=== PATIENT | male | born 1935 | race Caucasian/White ===

== ENCOUNTER 2017-10-16 14:28 | Observation (INO) | payer MEDICARE, BC ==
[2017-10-16] VITALS (10 sets, daily range): BP systolic 115–154; BP diastolic 53–89; PULSE 70–71; TEMP 97.4–97.9
[2017-10-16] MEDS ORDERED: TENORMIN 2525 MG/TAB PO (15:19)
[2017-10-16] MEDS ORDERED: GLUCOPHAGE500 MG/TAB PO (15:19)
[2017-10-16] MEDS ORDERED: ASPIRIN 32325 MG/TAB PO (15:20)
[2017-10-16] MEDS ORDERED: AMARYL4 MG PO (15:20)
[2017-10-16] MEDS ORDERED: ZYLOPRIM 100MG100 MG PO (15:21)
[2017-10-16] MEDS ORDERED: COUMADIN4 MG PO (15:22)
[2017-10-16 15:23] LABS: HEMATOCRIT 38.1 % (42.0-52.0); HEMOGLOBIN 13.2 g/dl (13.5-18.0); MEAN CELL VOLUME 91 fl (80.0-100.0); MEAN CORPUSCULAR HEMOGLOBIN 31 pg (27.0-31.0); MEAN CORPUSCULAR HGB CONC 35 g/dl (33.0-37.0); MEAN PLATELET VOLUME 9.3 fl (7.4-10.4); PLATELET COUNT 175 K/mm3 (130-400); REDCELL DISTRIBUTION WIDTH-CV 12.9 % (11.5-14.5)
[2017-10-16] MEDS ORDERED: COZAAR 50MG50 MG/TAB PO (15:23)
[2017-10-16 15:35] LABS: ALBUMIN 3.9 gm/dL (3.5-5.0); BILIRUBIN,TOTAL 0.6 mg/dL (0.0-1.0); CALCIUM 9.1 mg/dL (8.4-10.2); CREATININE, serum 0.93 mg/dL (0.66-1.25); POTASSIUM 4.1 mmol/L (3.4-5.0); TOTAL PROTEIN 7.5 gm/dL (6.4-8.2)
[2017-10-17 03:57] VITALS: BP 128/81; PULSE 70; TEMP 98.2
[2017-10-17 07:50] VITALS: BP 123/68; PULSE 69; TEMP 98
== END 2017-10-17 12:54 | disposition home or self-care (01) ==
LOC: JCC 14:28
PROVIDERS: Urology
DX: N32.89 Other specified disorders of bladder (principal); Z85.46 Personal history of malignant neoplasm of prostate; Z92.3 Personal history of irradiation; I10 Essential (primary) hypertension; E11.9 Type 2 diabetes mellitus without complications; Z79.84 Long term (current) use of oral hypoglycemic drugs; Z79.01 Long term (current) use of anticoagulants; Z79.82 Long term (current) use of aspirin; Z79.899 Other long term (current) drug therapy; Z95.810 Presence of automatic (implantable) cardiac defibrillator; N35.9 Urethral stricture, unspecified; N31.2 Flaccid neuropathic bladder, not elsewhere classified; N28.9 Disorder of kidney and ureter, unspecified
CPT/HCPCS: J0690; J1100; J2405; J2704; J3010

== ENCOUNTER 2017-11-12 13:59 | Day surgery (SDC) | payer MEDICARE, BC ==
[2017-11-12] VITALS (10 sets, daily range): BP systolic 105–149; BP diastolic 55–83; PULSE 70–98; TEMP 97.8–98.2
[~2017-11-12] VITALS: Ht 190.5 cm; Wt 100.3 kg
[~2017-11-12 13:59] MED LIST: AMARYL4 MG PO; ASPIRIN 32325 MG/TAB PO; COUMADIN4 MG PO; COZAAR 50MG50 MG/TAB PO; GLUCOPHAGE500 MG/TAB PO; TENORMIN 2525 MG/TAB PO; ZYLOPRIM 100MG100 MG PO
[2017-11-12 14:30] LABS: HEMATOCRIT 37.4 % (42.0-52.0); HEMOGLOBIN 12.6 g/dl (13.5-18.0); MEAN CELL VOLUME 91 fl (80.0-100.0); MEAN CORPUSCULAR HEMOGLOBIN 31 pg (27.0-31.0); MEAN CORPUSCULAR HGB CONC 34 g/dl (33.0-37.0); MEAN PLATELET VOLUME 9.7 fl (7.4-10.4); PLATELET COUNT 205 K/mm3 (130-400); RED BLOOD COUNT 4.11 M/mm3 (4.20-5.60); REDCELL DISTRIBUTION WIDTH-CV 13.4 % (11.5-14.5)
[2017-11-12] MEDS ORDERED: SULFAMETHOXAZOLE-TMP PO (14:35)
[2017-11-12 14:36] LABS: CALCIUM 9.2 mg/dL (8.4-10.2); CREATININE, serum 1.17 mg/dL (0.66-1.25)
[2017-11-13 00:13] VITALS: BP 114/69; PULSE 70; TEMP 97.9
[2017-11-13 03:36] VITALS: BP 127/74; PULSE 70; TEMP 98.5
[2017-11-13 08:00] VITALS: BP 128/71; PULSE 70; TEMP 98.8
[2017-11-13 11:56] VITALS: BP 126/81; PULSE 71; TEMP 98.1
== END 2017-11-13 15:42 | disposition home or self-care (01) ==
LOC: SURG 13:59 → SDCO 13:59
PROVIDERS: Urology
DX: R31.0 Gross hematuria (principal); I13.0 Hypertensive heart and chronic kidney disease with heart failure and stage 1 through stage 4 chronic kidney disease, or unspecified chronic kidney disease; E11.22 Type 2 diabetes mellitus with diabetic chronic kidney disease; N18.9 Chronic kidney disease, unspecified; I50.9 Heart failure, unspecified; N17.9 Acute kidney failure, unspecified; M19.90 Unspecified osteoarthritis, unspecified site; D64.9 Anemia, unspecified; I48.91 Unspecified atrial fibrillation; E78.5 Hyperlipidemia, unspecified; G47.33 Obstructive sleep apnea (adult) (pediatric); Z95.0 Presence of cardiac pacemaker; Z79.82 Long term (current) use of aspirin; Z79.84 Long term (current) use of oral hypoglycemic drugs; Z79.01 Long term (current) use of anticoagulants; Z85.46 Personal history of malignant neoplasm of prostate; Z82.49 Family history of ischemic heart disease and other diseases of the circulatory system
CPT/HCPCS: OP; J0690; J2405; J2704; J3010

== ENCOUNTER 2017-11-13 19:46 | Observation (INO) | payer MEDICARE, BC ==
[~2017-11-13] VITALS: Ht 190.5 cm; Wt 96.5 kg
[~2017-11-13 19:46] MED LIST changes: +SULFAMETHOXAZOLE-TMP PO
[2017-11-13 21:03] VITALS: BP 132/90; PULSE 94; TEMP 97.8
[2017-11-14 04:16] VITALS: BP 129/77; PULSE 71; TEMP 98.3
[2017-11-14 07:57] VITALS: BP 131/75; PULSE 70; TEMP 98
== END 2017-11-14 10:45 | disposition home or self-care (01) ==
LOC: JCC 19:46
DX: G89.18 Other acute postprocedural pain (principal)
CPT/HCPCS: G0378

== ENCOUNTER 2019-03-07 17:28 | Emergency (ER) | payer MEDICARE ==
[~2019-03-07] VITALS: Ht 182.9 cm; Wt 104.5 kg
[2019-03-07 17:31] VITALS: TEMP 97.1
[2019-03-07 18:02] LABS: BASO # 0.1 (0.0-0.2); BASO % 0.7 % (0.0-2.0); EOS # 0.2 (0.0-0.7); EOS % 2.2 % (0-4.0); GRAN # 6.1 (1.4-6.5); GRAN % 76.5 % (42.2-75.2); HEMATOCRIT 40.9 % (42.0-52.0); HEMOGLOBIN 13.5 g/dl (13.5-18.0); MEAN CELL VOLUME 94 fl (80.0-100.0); MEAN CORPUSCULAR HEMOGLOBIN 31 pg (27.0-31.0); MEAN CORPUSCULAR HGB CONC 33 g/dl (33.0-37.0); MEAN PLATELET VOLUME 9.7 fl (7.4-10.4); MONO # 0.7 (0.1-0.6); MONO % 8.1 % (1.7-9.3); PLATELET COUNT 179 K/mm3 (130-400); RED BLOOD COUNT 4.36 M/mm3 (4.20-5.60); REDCELL DISTRIBUTION WIDTH-CV 13.2 % (11.5-14.5)
[2019-03-07 18:22] LABS: ALBUMIN 4.4 gm/dL (3.5-5.0); BILIRUBIN,TOTAL 0.6 mg/dL (0.0-1.0); CALCIUM 8.8 mg/dL (8.4-10.2); CREATININE, serum 1.43 (0.66-1.25); POTASSIUM 4.4 mmol/L (3.4-5.0); TOTAL PROTEIN 7.8 gm/dL (6.4-8.2)
[2019-03-07 18:31] LABS: COLLECTION METHOD CATHETER
[2019-03-07 18:49] LABS: MUCOUS Present /lpf; PH 8 (5-8); SQUAMOUS EPITHELIAL None Seen /hpf; URINE APPEARANCE Cloudy; URINE BACTERIA Rare /hpf; URINE BILIRUBIN Negative (NEGATIVE); URINE BLOOD 3+ (NEGATIVE); URINE COLOR Amber; URINE GLUCOSE Negative (NEGATIVE); URINE KETONE Negative (NEGATIVE); URINE LEUKOCYTE ESTERASE 2+ (NEGATIVE); URINE NITRATE Negative (NEGATIVE); URINE PROTEIN(semi-quant) 2+ (NEGATIVE); URINE RBC >50 /hpf; URINE UROBILINOGEN Negative (NEGATIVE)
[2019-03-07] MEDS ORDERED: CEFTIN500 MG PO (19:21)
[2019-03-07 19:56] VITALS: BP 149/73; PULSE 71
[2019-03-07] MEDS ORDERED: PLAVIX 75MG TAB75 MG PO (20:55)
[2019-03-07] MEDS ORDERED: PROTONIX 40MG T40 MG PO (20:56)
[2019-03-10] MEDS ORDERED: CIPRO 500MG TA500 MG PO (18:20)
== END 2019-03-07 19:56 | disposition home or self-care (01) ==
LOC: COL.ER 17:28
PROVIDERS: Emergency Medicine
DX: T83.098A Other mechanical complication of other urinary catheter, initial encounter (principal); N39.0 Urinary tract infection, site not specified; I48.91 Unspecified atrial fibrillation; E11.9 Type 2 diabetes mellitus without complications; Z95.0 Presence of cardiac pacemaker; Z79.82 Long term (current) use of aspirin; Z79.84 Long term (current) use of oral hypoglycemic drugs
CPT/HCPCS: A4216; J0696; J7030